=== PATIENT | male | born 2000 | race Two or more races ===

== ENCOUNTER 2019-12-12 10:26 | Day surgery (SDC) | payer BC ==
[2019-12-08 15:16] LABS: Basophils # (auto) 0.1 10 ^3/uL (0-0.2); Basophils % (auto) 0.7 % (0.0-2.0); Eosinophils # (auto) 0.1 10 ^3/uL (0-0.8); Eosinophils % (auto) 1.4 % (0.0-7.0); Hematocrit 50.4 % (41.0-53.0); Hemoglobin 16.3 g/dL (13.5-17.5); Lymphocytes # (auto) 2.4 10 ^3/uL (0.4-5.4); Mean Corpuscular Hemoglobin 28.2 pg (28.0-32.0); Mean Corpuscular Hgb Conc. 32.4 g/dL (32.0-36.0); Mean Corpuscular Volume 87.1 fL (80.0-100.0); Monocytes # (auto) 0.5 10 ^3/uL (0-1.3); Monocytes % (auto) 5.6 % (0.0-12.0); Neutrophils # (auto) 6.5 10 ^3/uL (1.6-8.6); Neutrophils % (auto) 67.3 % (37.0-80.0); Nucleated Red Blood Cells % 0.1 %; Platelet Count (auto) 338 10^3/uL (140-450); Red Blood Cells 5.79 10^6/uL (4.5-5.90); White Blood Cell 9.6 10^3/uL (4.4-10.8)
[2019-12-08 15:34] LABS: Albumin 4.3 g/dL (3.4-5.0); BUN/Creatinine Ratio 15.4; Calcium 9.6 mg/dL (8.5-10.1); Partial Thromboplastin Time 29.8 sec (23.0-31.2); Potassium 3.9 mmol/L (3.5-5.1)
[2019-12-08 15:37] LABS: Bilirubin, Total 0.3 mg/dL (0.2-1.0); Total Protein 8.1 g/dL (6.4-8.2)
[2019-12-08 15:45] LABS: Urine Bacteria NONE SEEN /hpf (None Seen); Urine Blood Negative /uL (Negative); Urine Specific Gravity 1.021 (1.001-1.035); Urine WBC 1 /hpf (0 - 3)
[~2019-12-12] VITALS: Ht 172.7 cm; Wt 97.5 kg
[2019-12-12] MEDS ORDERED: ceFAZolin 1GM/50ML 100 ML IV ONE (12:00)
[2019-12-12] MEDS ORDERED: PROPOFOL 10 MG/ML 20 ML IV ONE (14:39)
[2019-12-12] MEDS ORDERED: LIDOCAINE 1% HCL (LOCAL ANESTH.) INJ 20ML MDV ONE (14:39)
[2019-12-12] MEDS ORDERED: BUPIVACAINE 0.25% INJ 50ML VIAL ONE (14:39)
[2019-12-12] MEDS ORDERED: fentaNYL CITRATE 100 MCG/2 ML VL ONE ×2 (14:57→15:31)
[2019-12-12] MEDS ORDERED: MIDAZOLAM HCL 1MG/1ML-2 ML VIAL ONE (14:57)
[2019-12-12] MEDS ORDERED: fentaNYL CITRATE 100 MCG/2 ML VL IV ONE (15:56)
[2019-12-12] MEDS ORDERED: ONDANSETRON HCL 4 MG/2 ML VIAL IV PRN (16:00)
[2019-12-12] MEDS ORDERED: hydrALAZINE HCL 20 MG/ML VL IV PRN (16:00)
[2019-12-12] MEDS ORDERED: ePHEDrine SULFATE 50 MG/ML AMP IV PRN (16:00)
[2019-12-12] MEDS ORDERED: fentaNYL CITRATE 100 MCG/2 ML VL IV PRN (16:00)
[2019-12-12 16:25] VITALS: BP 150/98
== END 2019-12-12 16:35 | disposition home or self-care (01) ==
LOC: SUR 10:26
PROVIDERS: ATTEND Orthopaedic Surgery Adult Reconstructive Orthopaedic Surgery
DX: M79.642 Pain in left hand (principal); S62.311A Displaced fracture of base of second metacarpal bone, left hand, initial encounter for closed fracture; Z90.49 Acquired absence of other specified parts of digestive tract; Z98.890 Other specified postprocedural states; Z79.899 Other long term (current) drug therapy; Z20.828 Contact with and (suspected) exposure to other viral communicable diseases; X58.XXXA Exposure to other specified factors, initial encounter; Y93.89 Activity, other specified; Y92.89 Other specified places as the place of occurrence of the external cause; Y99.8 Other external cause status
CPT/HCPCS: 26746; 36415; 73140; 80053; 81001; 85025; 85610; 85730; C1713; J0690; J2001; J2250; J2704; J3010; J3490; U0003; 76000